=== PATIENT | male | born 1960 | race Caucasian/White ===

== ENCOUNTER 2017-05-25 20:19 | Emergency (ER) | payer BC ==
[~2017-05-25] VITALS: Ht 175.3 cm; Wt 88.0 kg
[~2017-05-25 20:19] MED LIST: ADVAI250I; ALBU6.7H INH; APIX5TAB PO; CYCL-36 PO; GLIP5 PO; INSU100V SQ; LEVA500T PO; MEDR4PAK3 PO; METO25 PO; OMEP20TA39 PO; PRIN10TA PO; VENTAER INH
[2017-05-25 20:32] VITALS: BP 170/83; PULSE 80; RESP 18; TEMP 98; O2SAT 96
[2017-05-25] MEDS ORDERED: INSU100V SQ (20:59)
[2017-05-25] MEDS ORDERED: VENTAER INH (20:59)
[2017-05-25] MEDS ORDERED: SIMV20TA PO (20:59)
[2017-05-25] MEDS ORDERED: PREV30CA11 PO (20:59)
[2017-05-25] MEDS ORDERED: METO25TA3 PO (20:59)
[2017-05-25] MEDS ORDERED: GLIP5TAB8 PO (20:59)
[2017-05-25] MEDS ORDERED: LISI10TA3 PO (20:59)
[2017-05-25] MEDS ORDERED: ADVA250A INH (20:59)
[2017-05-25] MEDS ORDERED: METF500T4 PO (20:59)
[2017-05-25] MEDS ORDERED: WARF-23 PO (20:59)
[2017-05-25] MEDS ORDERED: SODIUM CHLORIDE 0.9% FLUSH 10 ML FLUSH IVF PRN (21:00)
[2017-05-25] MEDS ORDERED: methylPREDNISolone SOD SUCC 125 MG/2 ML VIAL IVP ONE (21:00)
[2017-05-25] MEDS: RESP: ALBUTEROL 2.5 MG/IPRATROPIUM 0.5 MG NEB (SCH) INH (21:17)
[2017-05-25 21:27] VITALS: O2SAT 96
--- NOTE | 2017-05-25 21:29 | RADRPT ---
EXAM DATE/TIME: 05/25/2017 21:07 [facility] COMPARISON: CHEST SINGLE AP, August 27, 2015, 22:37. INDICATIONS : Shortness of breath. MEDICAL HISTORY : Chronic obstructive pulmonary disease. Asthma SURGICAL HISTORY : CABG. Stents. ENCOUNTER: Initial ACUITY: 4 - 6 days PAIN SCORE: 2/10 LOCATION: Bilateral chest FINDINGS: The lungs are clear without infiltrate, nodule, or mass. There is no appreciable pleural effusion fo r technique. Heart and mediastinum are unremarkable. CONCLUSION: No acute cardiopulmonary disease. Radha Sol MD on May 25, 2017 at 21:27 Board Certified Radiologist. This report was verified electronically.
[2017-05-25] MEDS ORDERED: PRED20 PO (21:33)
--- NOTE | 2017-05-25 21:34 | PD ---
HPI Chief Complaint: Respiratory Symptoms Time Seen by Provider: 20:53 Travel History International Travel<30 days: No Contact w/Intl Traveler<30days: No Traveled to known affect area: No History of Present Illness HPI 56-year-old male reports about 4 days of rhinorrhea which has caused his chronic COPD cough to worsen. He has no chest pain. No benefit from home nebulizers. No fever. Onset gradual. There appears to be no modifying factor. PFSH Past Medical History Hx Anticoagulant Therapy: Yes Arthritis: No Asthma: Yes Autoimmune Disease: No Blood Disorders: No Anxiety: No Depression: No Heart Rhythm Problems: No Cancer: No Cardiac Catheterization: Yes Cardiovascular Problems: Yes (triple bypass) High Cholesterol: Yes Chemotherapy: No Chest Pain: Yes Congestive Heart Failure: No COPD: Yes Cerebrovascular Accident: Yes (2006) Coronary Artery Disease: Yes Diabetes: Yes Patient Takes Glucophage: No Diminished Hearing: No Diverticulitis: Yes Endocrine: Yes Gastrointestinal Disorders: Yes GERD: Yes Glaucoma: No Genitourinary: No Headaches: No Hepatitis: No Hiatal Hernia: No Hypertension: Yes Immune Disorder: No Implanted Vascular Access Dvce: No Kidney Stones: No Musculoskeletal: Yes Neurologic: No Psychiatric: No Reproductive: No Respiratory: Yes (COPD) Immunizations Current: Yes Migraines: No Myocardial Infarction: No Radiation Therapy: No Renal Failure: No Seizures: No Sickle Cell Disease: No Sleep Apnea: No Thyroid Disease: No Ulcer: No ?: Not Past Surgical History Abdominal Surgery: Yes (2005 BOWEL RESECTION) AICD: No Appendectomy: No Arteriovenous Shunt: No Body Medical Devices: CORONARY STENTS X 6 Cardiac Surgery: Yes (TRIPLE BYPASS 2010/STENTS) Cholecystectomy: No Coronary Artery Bypass Graft: Yes (2010) Coronary Stent: Yes (X 6) Ear Surgery: Yes Endocrine Surgery: Yes Eye Surgery: Yes Genitourinary Surgery: No Gynecologic Surgery: No Insulin Pump: No Joint Replacement: No Neurologic Surgery: No Oral Surgery: Yes Pacemaker: No Thoracic Surgery: No Other Surgery: Yes Social History Alcohol Use: No Tobacco Use: Yes (1 ppd) Substance Use: No Allergies-Medications (Allergen,Severity, Reaction): Coded Allergies: No Known Allergies (Verified , 08/27/15) Reported Meds & Prescriptions Reported Meds & Active Scripts Active Albuterol Neb (Albuterol Sulfate) 1.25 Mg/3 Ml Neb 1.25 Mg NEB TID NEB PRN Prednisone 20 Mg Tab 40 Mg PO DAILY 4 Days Take 40 mg (2 tablets) daily for 5 days Reported Humalog Mix 75-25 Inj (Insulin Lispro Protam/Lispro Human) 1,000 Unit/10 Ml Susp 1 Units SQ Advair Diskus Inh (Fluticasone-Salmeterol Inh) 250-50 Mcg/Blist Aer 1 Puff INH BID Rinse mouth after use. Metformin ER (Metformin HCl) 500 Mg Blake 500 Mg PO DAILY With evening meal Glipizide 5 Mg Tab 5 Mg PO BIDAC Take 30 minutes before a meal Lisinopril 10 Mg Tab 10 Mg PO DAILY Prevacid (Lansoprazole) 30 Mg Capdr 30 Mg PO DAILY Simvastatin 20 Mg Tab 20 Mg PO DAILY Warfarin 5 Mg Tab 5 Mg PO DAILY Metoprolol Tartrate 25 Mg Tab 25 Mg PO BID Ventolin Hfa 18 GM Inh (Albuterol Sulfate) 90 Mcg/Act Aer 2 Puff INH Q4-6H PRN Review of Systems Except as stated in HPI: all other systems reviewed are Neg Physical Exam Narrative GENERAL: 56-year-old male well-nourished well-developed no acute distress SKIN: Warm and dry. HEAD: Atraumatic. Normocephalic. EYES: Pupils equal and round. No scleral icterus. No injection or drainage. ENT: No nasal bleeding or discharge. Mucous membranes pink and moist. NECK: Trachea midline. No JVD. CARDIOVASCULAR: Regular rate and rhythm. RESPIRATORY: Wheezing present bilaterally. GASTROINTESTINAL: Abdomen soft, non-tender, nondistended. Hepatic and splenic margins not palpable. MUSCULOSKELETAL: Extremities without clubbing, cyanosis, or edema. No obvious deformities. NEUROLOGICAL: Awake and alert. No obvious cranial nerve deficits. Motor grossly within normal limits. Five out of 5 muscle strength in the arms and legs. Normal speech. PSYCHIATRIC: Appropriate mood and affect; insight and judgment normal. Data Data Last Documented VS Vital Signs Date Time Temp Pulse Resp B/P Pulse Ox O2 Delivery O2 Flow Rate FiO2 05/25/17 21:27 96 05/25/17 20:32 98.0 80 18 170/83 Vital signs reviewed Orders Iv Access Insert/Monitor (05/25/17 20:55) Ecg Monitoring (05/25/17 20:55) Oximetry (05/25/17 20:55) Oxygen Administration (05/25/17 20:55) Chest, Single Ap (05/25/17 20:55) Sodium Chloride 0.9% Flush (Ns Flush) (05/25/17 21:00) Methylprednisolone So Succ Inj (Solumedr (05/25/17 21:00) Albuterol-Ipratropium Neb (Duoneb Neb) (05/25/17 21:00) Electrocardiogram (05/25/17 21:09) Albuterol Neb (Albuterol Neb) (05/25/17 22:00) MDM Medical Decision Making Medical Screen Exam Complete: Yes Emergency Medical Condition: Yes Medical Record Reviewed: Yes Differential Diagnosis Pneumonia, COPD exacerbation, asthma, postnasal drip Narrative Course Patient received IV solu-medrol and three rounds of duneb. Moderate improvement observed. A second three round of albuterol was given. Pt reports feeling much better. Pt ready for discharge. Diagnosis Primary Impression: COPD exacerbation Referrals: Primary Care Physician 2 days Additional Instructions: You have a choice when it comes to health care, and we are glad that you chose [facility]. Hopefully, we have met your expectations on today's visit. You are welcome to return to [facility] at any time, as we are committed to meeting the health care needs of our community. Med/Other Pt SpecificInfo: Prescription(s) given Scripts Albuterol Neb 1.25 Mg/3 Ml Neb1.25 Mg NEB TID NEB PRN (SHORTNESS OF BREATH) # 100 NEBULE Ref 0 Prov:Zuhair Roblero MD 05/25/17 Prednisone 20 Mg Tab40 Mg PO DAILY 4 Days Ref 0 Take 40 mg (2 tablets) daily for 5 days Prov:Zuhair Roblero MD 05/25/17 Disposition: 01 DISCHARGE HOME Condition: Stable Zuhair Roblero MD May 25, 2017 21:34
[2017-05-25] MEDS: RESP: ALBUTEROL 2.5 MG/3 ML NEB (SCH) INH (22:13)
[2017-05-25] MEDS ORDERED: ALBU1.25 NEB (22:24)
--- NOTE | 2017-05-26 15:58 | EKG ---
Date Performed: 05/25/2017 Time Performed: 21:09:55 PTAGE: 56 years EKG: Sinus rhythm BORDERLINE DECREASED PRECORDIAL VOLTAGE OTHERWISE WITHIN NORMAL LIMITS Compared to prior tracing no significant change BORDERLINE ECG PREVIOUS TRACING : 08/27/2015 21.57 DOCTOR: Az Funez Interpretating Date/Time 05/26/2017 15:57:50
== END 2017-05-25 22:47 | disposition home or self-care (01) ==
LOC: PHED 20:19
DX: J44.1 Chronic obstructive pulmonary disease with (acute) exacerbation (principal); F17.200 Nicotine dependence, unspecified, uncomplicated; I10 Essential (primary) hypertension; E11.9 Type 2 diabetes mellitus without complications; Z79.4 Long term (current) use of insulin
CPT/HCPCS: 71010; 93005; 94640; 94664; 96374; 99284; J2930; J7613